=== PATIENT | male | born 1990 | race African-American/Black ===

== ENCOUNTER 2022-06-04 07:45 | Emergency (ER) | payer OTHER, SELFPAY ==
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
[2022-06-04 07:52] VITALS: BP 133/94; PULSE 86; RESP 18; TEMP 36.8; O2SAT 100
[2022-06-04] MEDS: HYDROcodone/acetaminophen (*CRX) 5-325 MG TABLET 1 TAB PO (08:50)
[2022-06-04] MEDS: IBUPROFEN 400 MG TABLET 800 MG PO (08:50)
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
--- NOTE | 2022-06-08 11:57 | PC.NURSE ---
LATE ENTRY This note is being entered to document information to the patient's record. The following information was omitted on [06/08/22], by [Pam] FERMÍN from Zev Rinaldi NP for teardrop OCL placed on right hand .
== END 2022-06-04 10:01 | disposition home or self-care (01) ==
PROVIDERS: Emergency Provider Nurse Practitioner Family
DX: S62.392A Other fracture of third metacarpal bone, right hand, initial encounter for closed fracture (principal); V86.55XA Driver of 3- or 4- wheeled all-terrain vehicle (ATV) injured in nontraffic accident, initial encounter
CPT/HCPCS: 29125; 73130; 99284; A9270